=== PATIENT | male | born 1995 | race Caucasian/White ===

== ENCOUNTER 2019-11-01 20:10 | Emergency (ER) | payer SELFPAY ==
[~2019-11-01] VITALS: Ht 172.7 cm; Wt 79.4 kg
--- NOTE | 2019-11-01 20:13 | NUR ---
PT SHAUN BLS. TAKEN TO BED 5
[2019-11-01 20:15] VITALS: BP 125/87
--- NOTE | 2019-11-01 20:15 | NUR ---
PATIENT DENIES TRAUMA, NO LACERATION FOUND IN BACK OF HEAD, LACERATION IN WEBBING OF LEFT HAND FOUND, ERMD MADE AWARE
--- NOTE | 2019-11-01 20:15 | NUR ---
24 YEAR OLD MALE BIBA, PER EMS PATIENT WAS FOUND IN [place] DOWN [place] [address] AND WAS UNRESPONSIVE. UPON STERNAL RUB BY EMS PATIENT STATES HE WAS DRINKING ALL DAY. UPON ADMISSION PATIENT [facility] 13(E3,V4,M6), AOX3 (NAME, , LOCATION). PATIENT STATES HE DRANK 8 BEERS PRIOR TO BEING UNRESPONSIVE. PATIENT BREATHING EVEN AND UNLABORED, SKIN WARM AND DRY. PATIENT PLACED ON BEDSIDE MONITOR. VS STABLE. ERMD MADE AWARE OF PT. PMH - DENIES ALLERGIES - NKA
--- NOTE | 2019-11-01 20:25 | NUR ---
Dr. Walton examining patient.
--- NOTE | 2019-11-01 20:30 | NUR ---
LACERATION CARE PERFORMED BY EMT
[2019-11-01] MEDS ORDERED: NACL 0.9% 1,000 ML IV ONE (20:40)
--- NOTE | 2019-11-01 21:08 | NUR ---
PER VIRI PATRICK PATIENT OK FOR DISCHARGE, [place] [facility] CALLED REGARDING PATIENT REQUESTED BY PD
--- NOTE | 2019-11-01 21:13 | NUR ---
PATIENT ALERT AND AWAKE, BREATHING EVEN AND UNLABORED
--- NOTE | 2019-11-01 21:19 | NUR ---
[place] [employer] AT BEDSIDE
--- NOTE | 2019-11-01 21:25 | NUR ---
PATIENT TAKEN BY POLICE DEPT. PATIENT EXAMINED BY DR. PATRICK. PATIENT MEDICALLY CLEARED AND RELEASED IN CUSTODY IN STABLE CONDITION. ORIGINAL PRE-BOOK FORM GIVEN TO OFFICER WINIFRED.
--- NOTE | 2019-11-01 21:30 | NUR ---
PATIENT TAKEN BY [facility]
[2019-11-01 21:31] VITALS: BP 135/88
== END 2019-11-01 21:25 ==
LOC: MED 20:10
DX: S61.411A Laceration without foreign body of right hand, initial encounter (principal); F10.129 Alcohol abuse with intoxication, unspecified; X58.XXXA Exposure to other specified factors, initial encounter; Y93.89 Activity, other specified; Y92.89 Other specified places as the place of occurrence of the external cause; Y99.8 Other external cause status
CPT/HCPCS: 99283; J7030